=== PATIENT | female | born 1945 | race Hispanic/Latino ===

== ENCOUNTER 2019-01-30 07:53 | Outpatient (CLI) | payer MEDICARE ==
--- NOTE | 2019-01-30 09:36 | BD ---
DEXA BONE DENSITY STUDY: Date: 01/30/19 HISTORY: Postmenopausal. FINDINGS: Lumbar Spine: BMD (g/cm2) L1 0.842 T-Score: -1.3 L2 0.894 T-Score: -1.2 L3 0.941 T-Score: -1.3 L4 0.962 T-Score: -0.9 Total 0.916 T-Score: -1.2 Left Femoral Neck: 0.719 T-Score: -1.2 Total Femur: 0.871 T-Score: -0.6 IMPRESSION: 1. Osteopenia of the left femoral neck and lumbar spine. 2. 10 year fracture risk for major osteoporotic fracture is 9.4% and for hip fracture is 1.4%. Fract ure probabilities are calculated for an untreated patient. POS: [facility]
== END 2019-01-30 07:54 | disposition home or self-care (01) ==
LOC: BICMAMMO 07:53
PROVIDERS: ATTEND Internal Medicine Rheumatology
DX: M81.0 Age-related osteoporosis without current pathological fracture (principal); M85.89 Other specified disorders of bone density and structure, multiple sites
CPT/HCPCS: 77080

== ENCOUNTER 2024-01-01 07:45 | Outpatient (CLI) | payer OTHER | END 2024-01-01 07:46 | disposition home or self-care (01) | LOC: BICMAMMO 07:45 | PROVIDERS: ATTEND Nurse Practitioner Family | DX: Z13.820 Encounter for screening for osteoporosis (principal); E28.39 Other primary ovarian failure; M85.89 Other specified disorders of bone density and structure, multiple sites; Z78.0 Asymptomatic menopausal state | CPT/HCPCS: 77080 ==

== ENCOUNTER 2024-06-28 09:53 | Outpatient (CLI) | payer OTHER | END 2024-06-28 09:54 | disposition home or self-care (01) | LOC: ULT 09:53 | PROVIDERS: ATTEND Nurse Practitioner Family | DX: D64.9 Anemia, unspecified (principal); R74.8 Abnormal levels of other serum enzymes; N28.1 Cyst of kidney, acquired | CPT/HCPCS: 76700 ==

== ENCOUNTER 2024-07-19 08:09 | Outpatient (CLI) | payer OTHER | END 2024-07-19 08:10 | disposition home or self-care (01) | LOC: BICCT 08:09 | PROVIDERS: ATTEND Nurse Practitioner Family | DX: R93.89 Abnormal findings on diagnostic imaging of other specified body structures (principal); N28.89 Other specified disorders of kidney and ureter; R93.422 Abnormal radiologic findings on diagnostic imaging of left kidney | CPT/HCPCS: 74170 ==

== ENCOUNTER 2024-08-10 14:16 | Emergency (ER) | payer OTHER ==
[2024-08-10] MEDS ORDERED: Ketorolac Tromethamine 30 MG (1 mL) VIAL ONE (15:26)
== END 2024-08-10 15:40 | disposition home or self-care (01) ==
LOC: ERS 14:16
DX: M75.41 Impingement syndrome of right shoulder (principal); E11.9 Type 2 diabetes mellitus without complications; I10 Essential (primary) hypertension
CPT/HCPCS: 73060; J1885; 96372; 99283

== ENCOUNTER 2024-08-13 08:12 | Day surgery (SDC) | payer OTHER ==
[2024-08-13 08:36] LABS: #Basophils Less than 0.03 10x3/uL (0.0-0.2); %Basophils 0.3 % (0.0-1.0); %Eosinophils 1.3 % (0.0-10.0); %Lymphocytes 19.9 % (21.0-51.0); %Monocytes 7.7 % (0.0-10.0); %Neutrophils 70.7 % (42.0-75.0); Hematocrit 33.3 % (36.0-47.0); Mean Corpuscular Hemoglobin 32.8 pg (27.0-31.0); Mean Corpuscular Volume 99.4 fL (78.0-98.0); Mean Platelet Volume 10.2 fL (7.4-10.4); Platelet Count 246 10x3/uL (130-400); RBC Distribution Width 13.7 % (11.5-14.5); Red Blood Cell (RBC) Count 3.35 mill/uL (4.20-5.40)
[2024-08-13 08:57] LABS: Prothrombin Time 13.4 sec (12.0-14.7)
[2024-08-13 08:59] LABS: PTT 30.5 sec (22.9-36.1)
[2024-08-13] MEDS ORDERED: Lidocaine 1% PF 5 ML VIAL ONE (09:14)
[2024-08-13] MEDS ORDERED: fentaNYL 50 mcg/mL 1 mL Vial ONE ×2 (09:14→10:06)
[2024-08-13] MEDS ORDERED: Midazolam HCl 2 mg/2 ml Vial ONE (09:15)
[2024-08-13] MEDS ORDERED: Lidocaine 1% w/Epinephrine 1:100K 20 ML VIAL ONE (09:15)
[2024-08-13] MEDS ORDERED: Sodium Bicarbonate 2.5 MEQ/5 ML SDV ONE (09:15)
[2024-08-13] MEDS ORDERED: hydrALAZINE 20 MG/ML VIAL ONE (09:26)
[2024-08-13] MEDS ORDERED: Metoprolol Tartrate 5 MG (5 mL) VIAL ONE (12:04)
== END 2024-08-13 16:31 | disposition home or self-care (01) ==
LOC: CT 08:12
PROVIDERS: ATTEND Urology
PROC: 0TB03ZX Excision of Right Kidney, Percutaneous Approach, Diagnostic (ICD-10-PCS; principal; 2024-08-13)
DX: C64.1 Malignant neoplasm of right kidney, except renal pelvis (principal); I10 Essential (primary) hypertension; E11.9 Type 2 diabetes mellitus without complications; M06.9 Rheumatoid arthritis, unspecified; Z90.49 Acquired absence of other specified parts of digestive tract; Z90.710 Acquired absence of both cervix and uterus; Z88.8 Allergy status to other drugs, medicaments and biological substances; Z79.84 Long term (current) use of oral hypoglycemic drugs; Z79.899 Other long term (current) drug therapy
CPT/HCPCS: 50200; 77002; 77012; 85025; 85610; 85730; J0360; J2250; J3010; 88305; 88333; 88334; 88341; 88342; 99152; 99153